=== PATIENT | female | born 1970 | race Caucasian/White ===

== ENCOUNTER → 2018-07-06 12:43 | Outpatient (CLI) | payer BC ==
[2018-07-06 17:13] LABS: BASOPHILS 0.5 % (0-2); HEMATOCRIT 41.7 % (36.0-48.0); HEMOGLOBIN 14.1 g/dL (12-16); IMMATURE GRANULOCYTES 0.5 % (0-5); LYMPHOCYTES 24.7 % (15-50); MCH 30.5 pg (26.0-34.0); MCHC 33.8 g/dL (31.0-37.0); MCV 90.1 fL (80.0-100.0); MONOCYTES 8.2 % (2-11); NEUTROPHILS 64.1 % (40-80); PLATELET COUNT 359 10x3/uL (130-400); RBC 4.63 10x6/uL (4.00-5.40); RDW 13.9 % (11.5-14.5); WBC 10.3 10x3/uL (4.8-10.8)
[2018-07-06 17:28] LABS: CREATININE - SERUM 0.9 mg/dL (0.6-1.3)
== END | disposition home or self-care (01) ==
LOC: D.LABREF 12:43
PROVIDERS: Surgery
DX: Z98.84 Bariatric surgery status (principal)